=== PATIENT | male | born 2000 | race Caucasian/White ===

== ENCOUNTER 2020-04-09 23:28 | Emergency (ER) | payer OTHER ==
[~2020-04-09] VITALS: Ht 175.3 cm; Wt 70.3 kg
[2020-04-09 23:32] VITALS: BP_SYST 127
--- NOTE | 2020-04-09 23:32 | NUR ---
Patient to ER bed 03 to gown for evaluation. Side rails up. Report given to IVETTE OCAMPO
--- NOTE | 2020-04-09 23:41 | NUR ---
PT BIB BLS FROM HOME A&O X4 C/O UNWITNESSED FALL WHEN WALKING DOWN HALLWAY FEELING HEAT THEN FAINTED, UNCONSCIOUS FOR ABOUT 10 SECONDS. PT REPORTS NO HX OF SYNCOPE. PT DENIES HITTING HEAD. PT REPORTS FEELING NAUSEOUS AND VOMIITED THREE TIMES AFTER FAINTING EPISODE. PT DENIES PAIN. PT DENIES COUGH, FEVER, SOB.
[2020-04-10] MEDS ORDERED: ONDANSETRON HCL 4 MG/2 ML VIAL IVP ONE
[2020-04-10] MEDS ORDERED: NACL 0.9% 1,000 ML IV ONE
--- NOTE | 2020-04-10 00:17 | NUR ---
ER Dr. FARIA at bedside examining patient.
[2020-04-10 00:55] LABS: BASOPHILS # (AUTO) 0.1 K/uL (0.0-0.2); BASOPHILS % (AUTO) 0.9 % (0.0-2.0); EOSINOPHILS # (AUTO) 0.1 K/uL (0.0-0.4); EOSINOPHILS % (AUTO) 1.6 % (0.0-4.0); HEMATOCRIT 46.8 % (36-54); HEMOGLOBIN 16.1 g/dL (14.0-18.0); LYMPHOCYTES # (AUTO) 2.9 K/uL (1.0-5.5); MEAN CORPUSCULAR HEMOGLOBIN 31 pg (27-31); MEAN CORPUSCULAR HGB CONC 34 % (32-36); MEAN CORPUSCULAR VOLUME 89 fL (79.0-98.0); MONOCYTES # (AUTO) 0.5 K/uL (0.0-1.0); MONOCYTES % (AUTO) 6.5 % (1.7-9.3); NEUTROPHILS # (AUTO) 4.5 K/uL (1.8-7.7); PLATELET COUNT (AUTO) 180 K/uL (130-430); RED BLOOD CELL COUNT(AUTO) 5.27 MIL/uL (4.2-6.2); WHITE BLOOD COUNT (AUTO) 8.1 K/uL (4.8-10.8)
[2020-04-10 00:58] LABS: CALCIUM 9.1 mg/dL (8.4-11.0); CREATININE 1.07 mg/dL (0.55-1.30); POTASSIUM 3.6 mmol/L (3.5-5.1)
[2020-04-10 00:59] LABS: BILIRUBIN,URINE NEGATIVE (NEGATIVE); BLOOD, URINE NEGATIVE (NEGATIVE); CLARITY/URINE CLEAR (CLEAR); COLOR,URINE YELLOW (YELLOW); GLUCOSE,URINE NEGATIVE (NEGATIVE); KETONES,URINE NEGATIVE (NEGATIVE); LEUKOCYTE ESTERASE ,URINE NEGATIVE (NEGATIVE); NITRITE, URINE NEGATIVE (NEGATIVE); PROTEIN URINE 1+ (NEGATIVE); UROBILINOGEN,URINE 0.2 (0.2-1.0)
[2020-04-10 01:03] LABS: INR 1.1 (0.80-1.20)
[2020-04-10 01:04] LABS: ALBUMIN 4.3 g/dL (3.4-4.8); TOTAL BILIRUBIN 0.5 mg/dL (0.0-1.0)
--- NOTE | 2020-04-10 01:12 | NUR ---
PT SLEEPING COMFORTABLY IN BED. VITAL SIGNS STABLE.
[2020-04-10 01:15] LABS: BARBITURATE, URINE NEGATIVE (NEG <=200); BENZODIAZEPINE, URINE NEGATIVE (NEG <=150); CANNABINOID, URINE NEGATIVE (NEG <=50); COCAINE, URINE NEGATIVE (NEG <=150); METHAMPHETAMINES SCREEN,URINE NEGATIVE (NEG <=500); OPIATE, URINE NEGATIVE (NEG <=100); PHENCYCLIDINE SCREEN,URINE NEGATIVE (NEG <=25); UR TRICYCLIC ANTIDEPRESSANTS NEGATIVE (NEG <=300); URINE AMPHETAMINE NEGATIVE (NEG <=500); URINE METHADONE NEGATIVE (NEG <=200); URINE OXYCODONE SCREEN NEGATIVE (NEG <=100); URINE PROPOXYPHENE SCREEN NEGATIVE (NEG <=300)
[2020-04-10 01:30] LABS: BACTERIA,URINE FEW /HPF (None Seen); RBC,URINE 0-3 /HPF (0-3); WBC,URINE 0-3 /HPF (0-3)
[2020-04-10 02:25] VITALS: BP_SYST 121
== END 2020-04-10 02:25 | disposition home or self-care (01) ==
LOC: SED 23:28
DX: R55 Syncope and collapse (principal)
CPT/HCPCS: 36415; 71045; 80053; 80307; 81000; 84484; 85025; 85610; 85730; 93005; 96361; 96374; 99285; J2405; J7030